=== PATIENT | female | born 1960 | race Caucasian/White ===

== ENCOUNTER 2018-01-01 09:37 | Emergency (ER) | payer SELFPAY, MEDICAID | END 2018-01-01 10:20 | disposition home or self-care (01) | LOC: M ED 09:37 | DX: B35.4 Tinea corporis (principal); F17.210 Nicotine dependence, cigarettes, uncomplicated | CPT/HCPCS: 99282 ==

== ENCOUNTER 2018-03-05 09:55 | Emergency (ER) | payer OTHER, SELFPAY | END 2018-03-05 10:54 | disposition home or self-care (01) | LOC: M ED 09:55 | DX: B35.9 Dermatophytosis, unspecified (principal); F17.200 Nicotine dependence, unspecified, uncomplicated; Z79.899 Other long term (current) drug therapy | CPT/HCPCS: 99282 ==

== ENCOUNTER → 2018-03-22 | Outpatient (REF) | payer OTHER | LOC: M SFHCPLAZ 14:11 | DX: Z76.89 Persons encountering health services in other specified circumstances (principal) ==

== ENCOUNTER 2020-02-01 18:24 | Inpatient (IN) | payer OTHER ==
[~2020-02-01] VITALS: Ht 165.1 cm; Wt 60.5 kg
[~2020-02-01 18:24] MED LIST: FLUC200T2 PO; [UNRECOGNIZED DRUG - CODE] TOP
[2020-02-01] MEDS ORDERED: MORPHINE 2 MG/ML 1ML VIAL (J2270) IV ONE (19:00)
[2020-02-01] MEDS ORDERED: NS 500 ML IV ONE (19:00)
[2020-02-01] MEDS ORDERED: ONDANSETRON 4MG/2ML VIAL IV ONE (19:00)
--- NOTE | 2020-02-01 19:43 | REPVR ---
PROCEDURE INFORMATION: Exam: CT Head Without Contrast Exam date and time: 02/01/2020 7:07 PM Age: 59 years old Clinical indication: Injury or trauma; Fall; Initial encounter; Blunt trauma (contusions or hematomas); Additional info: Fall, recent alcohol TECHNIQUE: Imaging protocol: Computed tomography of the head without contrast. Axial and coronal reformatted images were created and reviewed. Radiation optimization: All CT scans at this facility use at least one of these dose optimization techniques: automated exposure control; mA and/or kV adjustment per patient size (includes targeted exams where dose is matched to clinical indication); or iterative reconstruction. COMPARISON: No relevant prior studies available. FINDINGS: Brain: No CT evidence of acute intracranial hemorrhage or acute territorial infarction. No significant mass effect or midline shift. Basal cisterns patent. Ventricles: Normal in size and configuration. Bones/joints: No acute osseous abnormality. Chronic deformity of the nasal bones. Paranasal sinuses: Minimal ethmoid mucosal thickening. Mastoid air cells: Grossly unremarkable. Soft tissues: Grossly unremarkable. IMPRESSION: 1. No CT evidence of acute intracranial pathology. 2. Additional findings, as above. Electronically signed by: Lionel Soto On 02/01/2020 19:43:20 PM
--- NOTE | 2020-02-01 19:46 | REPVR ---
PROCEDURE INFORMATION: Exam: CT Cervical Spine Without Contrast Exam date and time: 02/01/2020 7:07 PM Age: 59 years old Clinical indication: Injury or trauma; Fall; Initial encounter; Blunt trauma; Additional info: Fall, recent alcohol TECHNIQUE: Imaging protocol: Computed tomography images of the cervical spine without contrast. Axial, coronal and sagittal reformatted images were created and reviewed. Radiation optimization: All CT scans at this facility use at least one of these dose optimization techniques: automated exposure control; mA and/or kV adjustment per patient size (includes targeted exams where dose is matched to clinical indication); or iterative reconstruction. COMPARISON: No relevant prior studies available. FINDINGS: Vertebrae: Osteopenia. Straightening of the no cervical lordosis. Mild anterolisthesis of C3 on C4, C4 on C5 and C7 on T1. Mild retrolisthesis of C5 on C6. Alignment otherwise anatomic. No CT evidence of acute fracture, dislocation or subluxation. Vertebral body heights maintained. Discs/Spinal canal/Neural foramina: Mild multilevel degenerative changes, characterized by disc space narrowing, osteophytosis and uncovertebral and facet joint hypertrophy. Mild multilevel spinal canal and neural foraminal narrowing. Soft tissues: Grossly unremarkable. IMPRESSION: 1. No CT evidence of acute cervical spine traumatic injury. 2. Additional findings, as above. Electronically signed by: Lionel Soto On 02/01/2020 19:46:04 PM
[2020-02-01 19:53] LABS: BASO # 0.1 10^3/uL (0.0-0.2); BASO % 0.5 % (0.0-1.0); EOS # 0.1 10^3/uL (0.0-0.5); EOS % 0.5 % (0.0-3.0); HEMATOCRIT 46.7 % (36.0-47.0); HEMOGLOBIN 15.5 g/dl (12.0-15.5); LYMPH # 2.3 10^3/uL (1.5-5.0); LYMPH % 20.7 % (24.0-44.0); MEAN CORPUSCULAR HGB CONC 33.2 g/dl (32.0-36.5); MEAN CORPUSCULAR VOLUME 90.3 fl (80.0-96.0); MONO # 0.6 10^3/uL (0.0-0.8); MONO % 5.6 % (0.0-5.0); NEUTROPHILS % 72.4 % (36.0-66.0); PLATELET COUNT, AUTOMATED 281 10^3/uL (150-450); RED BLOOD COUNT 5.17 10^6/uL (4.00-5.40); WHITE BLOOD COUNT 11.1 10^3/uL (4.0-10.0)
[2020-02-01 20:17] LABS: BLOOD UREA NITROGEN 8 MG/DL (7-18); CALCIUM LEVEL 8.6 MG/DL (8.8-10.2); CARBON DIOXIDE LEVEL 23 MEQ/L (21-32); CHLORIDE LEVEL 104 MEQ/L (98-107); CREATININE FOR GFR 0.55 MG/DL (0.55-1.30); ETHYL ALCOHOL (ETHANOL) 0.292 % (0.000-0.010); GLOMERULAR FILTRATION RATE > 60.0 (>45); GLUCOSE, FASTING 100 MG/DL (70-100); POTASSIUM SERUM 4.3 MEQ/L (3.5-5.1); SODIUM LEVEL 135 MEQ/L (136-145)
--- NOTE | 2020-02-01 20:45 | REPVR ---
PROCEDURE INFORMATION: Exam: XR Chest, 1 View Exam date and time: 02/01/2020 8:29 PM Age: 59 years old Clinical indication: Screening exam; Pre-operative exam; Other: Pre op; Additional info: Pre- op clearance TECHNIQUE: Imaging protocol: XR of the chest Views: 1 view. COMPARISON: No relevant prior studies available. FINDINGS: Lungs: Unremarkable. No consolidation. Pleural space: Unremarkable. No pleural effusion. No pneumothorax. Heart/Mediastinum: Unremarkable. No cardiomegaly. Bones/joints: No acute osseous abnormality. Mild degenerative changes of the spine. IMPRESSION: No acute radiographic findings. Electronically signed by: Lionel Soto On 02/01/2020 20:45:20 PM
--- NOTE | 2020-02-01 20:45 | REPVR ---
PROCEDURE INFORMATION: Exam: XR Right Femur Exam date and time: 02/01/2020 8:29 PM Age: 59 years old Clinical indication: Pain; Lower leg; Right; Additional info: Fall, deformity TECHNIQUE: Imaging protocol: XR Right femur. Views: 2 views. COMPARISON: No relevant prior studies available. FINDINGS: Bones/joints: No radiographic evidence of acute fracture or dislocation. Alignment anatomic. Joint spaces preserved. Soft tissues: Grossly unremarkable. IMPRESSION: No acute radiographic findings. Electronically signed by: Lionel Soto On 02/01/2020 20:45:14 PM
--- NOTE | 2020-02-01 20:52 | REPVR ---
PROCEDURE INFORMATION: Exam: XR Right Tibia and Fibula Exam date and time: 02/01/2020 8:29 PM Age: 59 years old Clinical indication: Pain; Lower leg; Right; Additional info: Fall, deformity TECHNIQUE: Imaging protocol: XR Right tibia and fibula. Views: 2 views. COMPARISON: No relevant prior studies available. FINDINGS: Bones/joints: Displaced, obliquely oriented fractures of the distal tibial and fibular shafts with posterior and lateral displacement of the distal fragments and slight apex lateral angulation at the fracture sites. No dislocation. Soft tissues: Soft tissue swelling. IMPRESSION: 1. Acute fractures of the distal tibia and fibula, as described above. 2. Additional findings, as above. Electronically signed by: Lionel Soto On 02/01/2020 20:52:24 PM
[2020-02-01] MEDS ORDERED: ACETAMINOPHEN TAB 650MG DOSE (2X325MG) PO PRN (21:30)
[2020-02-01] MEDS ORDERED: LORazepam 2 MG TAB PO PRN (21:30)
[2020-02-01] MEDS ORDERED: fentaNYL 100 MCG/2 ML INJECTION (J3010) IV ONE (22:00)
[2020-02-01 23:38] VITALS: BP 138/86
[2020-02-02] VITALS (9 sets, daily range): BP systolic 139–159; BP diastolic 78–102
--- NOTE | 2020-02-02 00:24 | HPEPDOC ---
General Date of Admission Feb 01, 2020 at 21:26 Date of Service: Feb 01, 2020 Attending Physician: BLAS GOMEZ MD Chief Complaint The patient is a 59-year-old female admitted with a reason for visit of Etoh, Fall, Fracture Of R Lower Extremity. Source: Patient Exam Limitations: No limitations History of Present Illness 59 yo woman with no significant past medical history who was brought to the ED with acute RLE pain after suffering a mechanical fall that she reports happened while she was walking her dog. In the ED, she was HDS and afebrile and intoxicated reported having had only 2 beers. Workup was notable for R tib/fib XR that revealed acute fractures of distal tib/fib with posterior and lateral displacement with no dislocation with soft tissue swelling, R femur XR without fractures, head and C-spine CT's without acute pathology or fractures and CXR without cardiopulmonary abnormalities. Lab findings included leukocytosis to 11.1, Hgb 15.5, platelets 281, na 135, K 4.3, BUN 23, Cr 0.55, glucose 100, alcohol level of 0.292 and she was covid-[address] Dial was consulted by the ED and recommended admission to medicine and tentative plan for surgery tomorrow after resolution of alcohol intoxication. Of note, she is a smoker, appears to have alcohol use disorder but otherwise denies any recent fevers, chills, dysuria, cough, congestion, travel, sick contacts, chest pain, palpitations, peripheral edema, fainting spells, a history of seizure activity. Home Medications No Active Prescriptions or Reported Meds Allergies Coded Allergies: No Known Allergies (Unverified , 01/01/18) Past Medical History Medical History Nicotine addiction Alcohol use disorder Surgical History None Family History Significant Family History: No pertinent family hx Social History * Smoker: current smoker Alcohol: heavy Drugs: denies Recent Travel/Sick Contacts: Denies: Recent travel, Recent sick contacts Lives at home with her . A-FIB/CHADSVASC A-FIB History Current/History of A-Fib/PAF?: No Current PO Anticoag Therapy: No Age/Risk Factor Scoring CHADSVASC: CHADSVASC Response (Comments) Value Age Risk Factor Age < 65 years old 0 Gender Risk Factor Female 1 Hx of CHF No 0 Hx of HTN No 0 Hx of Stroke/TIA/or VTE No 0 Hx of Diabetes No 0 Hx of Vascular Disease No 0 Total 1 Treatment Treatment ordered: NONE Reason Anticoagulant not given: Not indicated/[id number] Review of Systems Constitutional: Denies: Chills, Fever, Night Sweats Eyes: Denies: Pain, Vision change ENT: Denies: Head Aches, Ear Pain, Dysphagia Skin: Denies: Rash, Lesions, Breakdown Pulmonary: Denies: Dyspnea, Cough Cardiovascular: Denies: Chest Pain, Palpitations, Orthopnea, Paroxysmal Noc. Dyspnea, Lt Headedness Gastrointestinal: Denies: Nausea, Vomiting, Abdominal Pain, Diarrhea Genitourinary: Denies: Dysuria, Frequency, Incontinence, Retention Hematologic: Denies: Bruising, Bleeding Excessively Endocrine: Denies: Polydipsia, Polyphagia, Polyuria, Heat Intolerance, Cold Intolerance, Other Endocrine Sx Musculoskeletal: Reports: Leg Pain (R leg pain since she fell this evening); Denies: Neck Pain, Back Pain, Shoulder Pain, Arm Pain Neurological: Denies: Weakness, Numbness, Change in speech, Confusion, Seizures Psych: Reports: Mood Normal; Denies: Depression, Memory Issues Physical Examination General Exam: Positive: Alert, No Acute Distress, Other (anxious, sometimes refuses care from nursing) Eye Exam: Positive: PERRLA, Conjunctiva & lids normal, EOMI; Negative: Sclera icteric ENT Exam: Positive: Atraumatic, Mucous membr. moist/pink, Pharynx Normal Neck Exam: Positive: Supple; Negative: JVD, thyromegaly Chest Exam: Positive: Clear to auscultation, Normal air movement Heart Exam: Positive: Rate Normal, Regular Rhythm, Normal S1, Normal S2; Negative: Murmurs, Rubs Telemetry: Positive: No significant arrhythmia Abdomen Exam: Positive: Normal bowel sounds, Soft; Negative: Tenderness, Hepatospenomegaly Extremity Exam: Positive: Swelling (RLE midl swelling, with leg brace on); Negative: Edema, Normal pulses Skin Exam: Positive: Nl turgor and temperature; Negative: Breakdown, Lesion Neuro Exam: Positive: Normal Speech, Strength at 5/5 X4 ext, Sensation Intact, Cranial Nerves 3-12 NL Psych Exam: Positive: Mental status NL, Mood NL, Anxiety, Oriented x 3 Vital Signs Vital Signs Date Time Temp Pulse Resp B/P (MAP) Pulse Ox O2 Delivery O2 Flow Rate FiO2 9/19/20 21:24 83 18 97 Room Air 02/01/20 20:39 161/84 (109) 02/01/20 19:57 98.4 Laboratory Data Labs 24H Laboratory Tests 2 02/01/20 19:36: Immature Granulocyte % (Auto) 0.3, Neutrophils (%) (Auto) 72.4H, Lymphocytes (%) (Auto) 20.7L, Monocytes (%) (Auto) 5.6H, Eosinophils (%) (Auto) 0.5, Basophils (%) (Auto) 0.5, Neutrophils # (Auto) 8.0, Lymphocytes # (Auto) 2.3, Monocytes # (Auto) 0.6, Eosinophils # (Auto) 0.1, Basophils # (Auto) 0.1, Nucleated Red Blood Cells % (auto) 0.0, Anion Gap 8, Glomerular Filtration Rate > 60.0, Calcium Level 8.6L, Ethyl Alcohol Level 0.292H 02/01/20 21:47: Coronavirus (COVID-19)(PCR) NEGATIVE CBC/BMP Laboratory Tests 02/01/20 19:36 Assessment/Plan 59 yo W who sustained R tib/fib fracture in the setting of alcohol intoxication. R tib/fib fracture: -Dr. Dial consulted, likely surgery tomorrow -EKG NSR, telemetry with NSR in the ED, CXR wnl, CT head and C-spine without acute pathology or fractures, smoker with no medications at baseline, breathing comfortably on room air, covid-19 negative, INR wnl, no other significant medical history, cleared for surgery at this time. -TEDs for DVT ppx -Bed rest for now until evaluation by surgery -PT/OT per surgery recommendations -AM CBC, BMP -NPO at midnight -morphine [id number] for severe pain, tylenol PRn for mild pain Alcohol use disorder: -CIWA protocol with symptom triggered ativan PRN -thiamine, folate, multivitamin Nicotine addiction: -counselled on deleterious effects of smoking. Patient reports that she has been fine but will consider quitting in the future Leukocytosis: likely reactive with clear CXR and no clinical history suggestive of ongoing infection -will monitor for now DVT ppx: TEDs and sequentials for now, with pending surgery Dispo: medsurg, inpatient Plan / VTE VTE Prophylaxis Ordered?: Yes KUPAKUWANA-GOLDEN,BLAS V. MD Feb 02, 2020 00:24
[2020-02-02] MEDS: MORPHINE 2 MG/ML 1ML VIAL (J2270) IV SCH ×2 (00:37→08:22)
[2020-02-02 07:02] LABS: HEMATOCRIT 42.4 % (36.0-47.0); HEMOGLOBIN 14.1 g/dl (12.0-15.5); MEAN CORPUSCULAR HEMOGLOBIN 29.8 pg (27.0-33.0); MEAN CORPUSCULAR HGB CONC 33.3 g/dl (32.0-36.5); MEAN CORPUSCULAR VOLUME 89.6 fl (80.0-96.0); PLATELET COUNT, AUTOMATED 253 10^3/uL (150-450); RED BLOOD COUNT 4.73 10^6/uL (4.00-5.40); WHITE BLOOD COUNT 9.4 10^3/uL (4.0-10.0)
[2020-02-02 07:35] LABS: BLOOD UREA NITROGEN 6 MG/DL (7-18); CARBON DIOXIDE LEVEL 25 MEQ/L (21-32); CHLORIDE LEVEL 106 MEQ/L (98-107); CREATININE FOR GFR 0.47 MG/DL (0.55-1.30); GLOMERULAR FILTRATION RATE > 60.0 (>45); GLUCOSE, FASTING 90 MG/DL (70-100); POTASSIUM SERUM 4.1 MEQ/L (3.5-5.1); SODIUM LEVEL 138 MEQ/L (136-145)
[2020-02-02 07:36] LABS: ALBUMIN 3.4 GM/DL (3.2-5.2); ALT/SGPT 30 U/L (12-78); BILIRUBIN,TOTAL 0.5 MG/DL (0.2-1.0); CALCIUM LEVEL 8.7 MG/DL (8.8-10.2); MAGNESIUM LEVEL 1.9 MG/DL (1.8-2.4); TOTAL PROTEIN 7.3 GM/DL (6.4-8.2)
[2020-02-02] MEDS: MULTIVITAMINS/MINERALS THERAP 1 TAB PO SCH (09:00)
[2020-02-02] MEDS: THIAMINE 100 MG TAB PO SCH ×2 (09:00→21:07)
[2020-02-02] MEDS: FOLIC ACID 1 MG TAB PO SCH (09:00)
[2020-02-02] MEDS ORDERED: MORPHINE 2 MG/ML 1ML VIAL (J2270) IV PRN ×2 (10:00→13:00)
[2020-02-02] MEDS ORDERED: ceFAZolin 2 GM/D5W 50 ML IV BAG (J0690 PER 500MG) As Ordered ONE (10:12)
[2020-02-02] MEDS ORDERED: NICOTINE 21MG/24HR 1 EA TRANSDERMAL TD ONE (10:15)
[2020-02-02] MEDS ORDERED: propofoL 200 MG/20 ML VIAL As Ordered ONE (10:42)
[2020-02-02] MEDS ORDERED: fentaNYL 100 MCG/2 ML INJECTION (J3010) As Ordered ONE (10:42)
[2020-02-02] MEDS ORDERED: MIDAZOLAM INJ 2MG/2ML VIAL (J2250 PER 1MG) As Ordered ONE (10:42)
[2020-02-02] MEDS ORDERED: LIDOCAINE 2% 100MG/5ML SDV (FOR ANES.) As Ordered ONE (10:42)
[2020-02-02] MEDS ORDERED: dexameTHASONE 4 MG/ML 1ML VIAL (J1100 PER 1MG) As Ordered ONE (10:43)
[2020-02-02] MEDS ORDERED: METOCLOPRAMIDE INJ 10MG/2ML VIAL (J2765 PER 1) As Ordered ONE (10:43)
[2020-02-02] MEDS ORDERED: ONDANSETRON 4MG/2ML VIAL As Ordered ONE (10:43)
[2020-02-02] MEDS ORDERED: PHENYLEPHRINE 10MG/ML 1ML VIAL (J2370 PER 1) As Ordered ONE (10:50)
[2020-02-02] MEDS ORDERED: ePHEDrine SULFATE 25 MG/5 ML(5MG/ML) SYRINGE As Ordered ONE (11:18)
[2020-02-02] MEDS ORDERED: ACETAMINOPHEN 1000MG 100ML IV BTL (OFIRMEV) (J0131 PER 10MG) As Ordered ONE (12:15)
[2020-02-02] MEDS ORDERED: METOCLOPRAMIDE INJ 10MG/2ML VIAL (J2765 PER 1) IV PRN (13:00)
[2020-02-02] MEDS ORDERED: ACETAMINOPHEN TAB 650MG DOSE (2X325MG) PO PRN (13:00)
[2020-02-02] MEDS ORDERED: LR 1,000 ML IV SCH ×2 (13:00)
[2020-02-02] MEDS ORDERED: ONDANSETRON 4MG/2ML VIAL IV PRN ×2 (13:00)
[2020-02-02] MEDS ORDERED: MORPHINE 4 MG/ML 1ML VIAL/SYRINGE (J2270) IV PRN (13:00)
[2020-02-02] MEDS ORDERED: fentaNYL 100 MCG/2 ML INJECTION (J3010) IV PRN (13:00)
[2020-02-02] MEDS ORDERED: PERCOCET 5MG/325MG TAB PO PRN (13:00)
[2020-02-02] MEDS ORDERED: PERCOCET 5MG/325MG TAB As Ordered ONE (13:11)
[2020-02-02] MEDS: PERCOCET 5MG/325MG TAB PO PRN ×2 (18:05→23:08)
--- NOTE | 2020-02-02 18:24 | IPNPDOC ---
Subjective Date Seen The patient was seen on 02/02/20. Subjective Chief Complaint/HPI Patient is a 59 year old female with history of alcohol and nicotine use disorder here with right tibia/fibula fracture. She was seen in the morning prior to going down to surgery. She was still having pain in her leg, but otherwise denies fever/chills, chest pain, dyspnea, abdominal pain, dysuria, or diarrhea. Constitutional: Denies: Chills, Fever Pulmonary: Denies: Dyspnea Cardiovascular: Denies: Chest Pain Gastrointestinal: Denies: Abdominal Pain, Diarrhea Genitourinary: Denies: Dysuria Objective Physical Examination General Exam: Positive: Alert, No Acute Distress, Other (anxious, sometimes refuses care from nursing) Eye Exam: Positive: PERRLA, Conjunctiva & lids normal, EOMI; Negative: Sclera icteric ENT Exam: Positive: Atraumatic, Mucous membr. moist/pink, Pharynx Normal Neck Exam: Positive: Supple; Negative: JVD, thyromegaly Chest Exam: Positive: Clear to auscultation, Normal air movement Heart Exam: Positive: Rate Normal, Regular Rhythm, Normal S1, Normal S2; Negative: Murmurs, Rubs Telemetry: Positive: No significant arrhythmia Abdomen Exam: Positive: Normal bowel sounds, Soft; Negative: Tenderness, Hepatospenomegaly Extremity Exam: Positive: Swelling (RLE midl swelling, with leg brace on); Negative: Edema, Normal pulses Skin Exam: Positive: Nl turgor and temperature; Negative: Breakdown, Lesion Neuro Exam: Positive: Normal Speech, Strength at 5/5 X4 ext, Sensation Intact, Cranial Nerves 3-12 NL Psych Exam: Positive: Mental status NL, Mood NL, Anxiety, Oriented x 3 Assessment /Plan Assessment Patient is a 59 year old female here with right tibia/fibular fracture. Dr. Dial has been consulted. Patient to have surgery today. Plan/VTE VTE Prophylaxis Ordered?: Yes Plan 1. Right tibia/fibular fracture - Orthopedics consulted, recommendations appreciated - Went to surgery today 2. Alcohol use disorder - [facility] protocol - Thiamine, folate, multivitamin 3. Nicotine addition - Will need to be re-addressed at a later date 4. Leukocytosis - May be secondary to fracture. Decreased with today's AM labs, but will increase after surgery. Continue to monitor 5. DVT ppx - TEDs and sequentials pending surgery VS, I&O, 24H, Fishbone Vital Signs/I&O Vital Signs Date Time Temp Pulse Resp B/P (MAP) Pulse Ox O2 Delivery O2 Flow Rate FiO2 02/02/20 18:05 18 02/02/20 13:30 82 141/97 02/02/20 13:12 98 Nasal Cannula 2.0 02/02/20 13:04 97.2 I&O- Last 24 Hours up to 6 AM 02/02/20 05:59 Intake Total 0 ml Output Total 0 ml Balance 0 ml Laboratory Data 24H LABS Laboratory Tests 2 02/01/20 19:36: Immature Granulocyte % (Auto) 0.3, Neutrophils (%) (Auto) 72.4H, Lymphocytes (%) (Auto) 20.7L, Monocytes (%) (Auto) 5.6H, Eosinophils (%) (Auto) 0.5, Basophils (%) (Auto) 0.5, Neutrophils # (Auto) 8.0, Lymphocytes # (Auto) 2.3, Monocytes # (Auto) 0.6, Eosinophils # (Auto) 0.1, Basophils # (Auto) 0.1, Nucleated Red Blood Cells % (auto) 0.0, Anion Gap 8, Glomerular Filtration Rate > 60.0, Calcium Level 8.6L, Ethyl Alcohol Level 0.292H 02/01/20 21:47: Coronavirus (COVID-19)(PCR) NEGATIVE 02/02/20 06:21: Nucleated Red Blood Cells % (auto) 0.0, Anion Gap 7L, Glomerular Filtration Rate > 60.0, Calcium Level 8.7L, Magnesium Level 1.9, Total Bilirubin 0.5, Aspartate Amino Transf (AST/SGOT) 30, Alanine Aminotransferase (ALT/SGPT) 30, Alkaline Phosphatase 103, Total Protein 7.3, Albumin 3.4, Albumin/Globulin Ratio 0.9L 02/02/20 08:29: Ethyl Alcohol Level < 0.003 CBC/BMP Laboratory Tests 02/01/20 19:36 02/02/20 06:21 INNA HENNESSY DO Feb 02, 2020 18:24
[2020-02-02] MEDS: ceFAZolin SOD 2 GM in IV 1 EA IV SCH (22:33)
[2020-02-03 02:00] VITALS: BP 137/79
[2020-02-03 06:00] VITALS: BP 135/79
[2020-02-03] MEDS ORDERED: ceFAZolin SOD 2 GM in IV 1 EA IV ONE (06:00)
[2020-02-03] MEDS: PERCOCET 5MG/325MG TAB PO PRN ×2 (06:01→10:42)
[2020-02-03] MEDS: ceFAZolin SOD 2 GM in IV 1 EA IV SCH (06:01)
[2020-02-03 06:04] LABS: BASO % 0.2 % (0.0-1.0); EOS % 0.1 % (0.0-3.0); HEMATOCRIT 40.2 % (36.0-47.0); HEMOGLOBIN 13.7 g/dl (12.0-15.5); LYMPH # 1.7 10^3/uL (1.5-5.0); LYMPH % 14.8 % (24.0-44.0); MEAN CORPUSCULAR HEMOGLOBIN 30.9 pg (27.0-33.0); MEAN CORPUSCULAR HGB CONC 34.1 g/dl (32.0-36.5); MEAN CORPUSCULAR VOLUME 90.5 fl (80.0-96.0); MONO # 1.3 10^3/uL (0.0-0.8); NEUTROPHILS # 8.1 10^3/uL (1.5-8.5); NEUTROPHILS % 72.5 % (36.0-66.0); PLATELET COUNT, AUTOMATED 242 10^3/uL (150-450); RED BLOOD COUNT 4.44 10^6/uL (4.00-5.40); WHITE BLOOD COUNT 11.2 10^3/uL (4.0-10.0)
[2020-02-03 06:14] LABS: BLOOD UREA NITROGEN 6 MG/DL (7-18); CALCIUM LEVEL 8.7 MG/DL (8.8-10.2); CARBON DIOXIDE LEVEL 29 MEQ/L (21-32); CHLORIDE LEVEL 104 MEQ/L (98-107); CREATININE FOR GFR 0.48 MG/DL (0.55-1.30); GLOMERULAR FILTRATION RATE > 60.0 (>45); GLUCOSE, FASTING 97 MG/DL (70-100); POTASSIUM SERUM 4.1 MEQ/L (3.5-5.1); SODIUM LEVEL 139 MEQ/L (136-145)
[2020-02-03] MEDS ORDERED: PERC5TAB12 PO (06:22)
[2020-02-03] MEDS ORDERED: ECOT81TA5 PO (06:22)
[2020-02-03 06:48] VITALS: BP 135/79
[2020-02-03] MEDS: MULTIVITAMINS/MINERALS THERAP 1 TAB PO SCH (07:52)
[2020-02-03] MEDS: FOLIC ACID 1 MG TAB PO SCH (07:52)
[2020-02-03] MEDS: THIAMINE 100 MG TAB PO SCH (07:52)
[2020-02-03] MEDS ORDERED: ASPIRIN 81 MG ENTERIC TAB PO SCH (09:00)
[2020-02-03] MEDS ORDERED: MIRALAX *UNIT DOSE* 17GM PACKET PO SCH (09:00)
--- NOTE | 2020-02-03 21:02 | DS.PDOC ---
Discharge Summary General Date of Admission Feb 01, 2020 at 21:26 Date of Discharge Feb 03, 2020 Attending Physician: INNA HENNESSY DO Specialist/Consultants [facility] Orthopedic surgery, Dr. Dial Discharge Summary PROCEDURES PERFORMED DURING STAY: Right ORIF for tubular fibular fracture ADMITTING DIAGNOSES: 1. Right tubular fibular fracture. 2. Alcohol disorder. 3. Nicotine addiction. 4. Leukocytosis DISCHARGE DIAGNOSES: 1. Right tubular fibular fracture. 2. Alcohol disorder. 3. Nicotine addiction. 4. Leukocytosis COMPLICATIONS/CHIEF COMPLAINT: Etoh, Fall, Fracture Of R Lower Extremity. HISTORY OF PRESENT ILLNESS: It is a 59-year-old female, history of alcohol abuse who comes [facility], [place] after having a mechanical fall while intoxic ated. She reported only having 2 beers, but she is intoxicated while walking her dog. She had a fall and then went to the ED workup was notable for a right tubular fibular fracture. Orthopedic surgery, Dr. Dial, was consulted. HOSPITAL COURSE: The following day, she was feeling well. She denied any fever, chills, chest pain, shortness of breath, abdominal pain or dysuria. She was ready for surgery. She had the repair on 02/02/2020. The following day she is feeling well other than the pain in her leg, status post surgery. Denied any fever or chills. Slight tenderness, dizziness, sore throat, chest pain, shortness of breath, cough, abdominal pain, diarrhea or dysuria. She worked with physical therapy and was cleared to be discharged. DISCHARGE MEDICATIONS: Please see below. ALLERGIES: Please see below. PHYSICAL EXAMINATION ON DISCHARGE: VITAL SIGNS: Please see below. PHYSICAL EXAM: GENERAL: Comfortable, in no apparent distress. HEENT: Head normocephalic/atraumatic, EOMI, sclera clear. NECK: Supple, no JVD. RESPIRATORY: Lungs clear to auscultation bilaterally, no rales, wheeze or rhonchi. CARDIOVASCULAR: Regular rate and rhythm. ABDOMEN: Soft, nontender, no guarding or rebound tenderness. Normal bowel sounds. MUSCLE SKELETAL: Right leg in cast NEUROLOGICAL: CN 312 grossly intact, no focal deficits noted. PSYCHOLOGICAL: Normal mood and affect LABORATORY DATA: Please see below. IMAGING: X-ray of the right tibia and fibula: Displaced, obliquely oriented fractures of the distal tibial and fibular shafts with posterior and lateral displacement of the distal fragments and slight apex lateral angulation at the fracture sites. No dislocation. PROGNOSIS: Stable ACTIVITY: Walk with walker, toe-touch weightbearing. DIET: As tolerated DISCHARGE PLAN:. Home DISPOSITION: 01 Home, Self-Care. DISCHARGE INSTRUCTIONS: 1. Follow-up with Dr. Dial in 2 weeks. 2. Follow-up with PCP in one week. DISCHARGE CONDITION: Stable. Total time spent on discharge planning, discharge summary med reconciliation 35 minutes Vital Signs/I&Os Vital Signs Date Time Temp Pulse Resp B/P (MAP) Pulse Ox O2 Delivery O2 Flow Rate FiO2 02/03/20 11:12 16 02/03/20 06:48 77 135/79 02/03/20 06:00 98.7 97 Room Air 02/02/20 22:00 2.0 I&O- Last 24 Hours up to 6 AM 02/03/20 06:00 Intake Total 3240 ml Output Total 560 ml Balance 2680 ml Laboratory Data Labs 24H Laboratory Tests 2 02/03/20 05:27: Immature Granulocyte % (Auto) 0.4, Neutrophils (%) (Auto) 72.5H, Lymphocytes (%) (Auto) 14.8L, Monocytes (%) (Auto) 12.0H, Eosinophils (%) (Auto) 0.1, Basophils (%) (Auto) 0.2, Neutrophils # (Auto) 8.1, Lymphocytes # (Auto) 1.7, Monocytes # (Auto) 1.3H, Eosinophils # (Auto) 0.0, Basophils # (Auto) 0.0, Nucleated Red Blood Cells % (auto) 0.0, Anion Gap 6L, Glomerular Filtration Rate > 60.0, Calcium Level 8.7L CBC/BMP Laboratory Tests 02/03/20 05:27 Discharge Medications Scheduled Aspirin (Ecotrin) 81 Mg Tablet.dr 81 MG PO BID for pain Scheduled PRN Oxycodone HCl/Acetaminophen (Percocet 5-325 mg Tablet) 1 Each Tablet, 1-2 TAB PO Q4H PRN for PAIN Allergies Coded Allergies: No Known Allergies (Unverified , 01/01/18) INNA HENNESSY DO Feb 03, 2020 21:02
--- NOTE | 2020-02-14 11:44 | REP ---
RIGHT TIBIA AND FIBULA: 12-VIEWS HISTORY: Intraoperative imaging. Open reduction internal fixation. 4 minutes and 4 seconds of fluoroscopy time is reported. FINDINGS: A sequence of 12 [id number] fluoroscopically obtained spot radiographs of the right tibia and fibula document intramedullary analy positioned in the tibia and operative fixation. MTDD
--- NOTE | 2020-02-14 11:58 | RO ---
DATE OF OPERATION: 02/02/2020 PREOPERATIVE DIAGNOSIS: Right distal tibia and fibula fracture. POSTOPERATIVE DIAGNOSIS: Right distal tibia and fibula fracture. PLANNED PROCEDURE: Open reduction and internal fixation/intramedullary nail at right tibia and fibula. PROCEDURE PERFORMED: Open reduction and internal fixation/intramedullary nail at right tibia and fibula with cannulated screw fixation. ANESTHESIOLOGIST: Dr. Thomas. TYPE OF ANESTHESIA: Spinal anesthetic. HISTORY OF PRESENT ILLNESS: This 59-year-old female was intoxicated and had a fall while walking her dog yesterday. She presented with oblique/spiral distal tibia and fibula fracture. We talked about pros, cons, risks, benefits of non- operative versus surgical intervention. She wished to go ahead. We marked the right lower extremity. We reiterated the risks and proceeded to surgery. OPERATIVE REPORT: The patient was brought to the operating theater. She was placed supine on the operating room table. Spinal anesthetic was induced. Two grams of IV Ancef were administered prior to the start of the case. The limb was prepped and draped in the usual sterile fashion. A bump was placed under the right hip. Tourniquet was used on the right thigh, appropriately padded. A bone foam positioner was used. The limb was prepped and draped in the usual fashion with chlorhexidine-based prep solution allowing over 3 minutes for the prep solution to dry prior to draping. Preoperative timeout was performed confirming the patient, site, and surgery. I began by elevating the limb and inflating the tourniquet to 250 mmHg. I made a small lateral incision centered over the distal aspect of the quadriceps tendon. I carried the dissection down through skin and subcutaneous tissue, splitting the quadriceps tendon at its length. I used a suprapatellar Synthes nailing set. I inserted the clear passage of cannula down to the medial aspect of the lateral tibial spine, as well as on the anterior tibial crest on both AP and lateral radiographs. I inserted the guidewire. I removed the inner sleeve. I used the reamer over top of this to an appropriate depth. I inserted the ball-tipped guide-wire down to the fracture site. I used two percutaneous fracture reduction forceps, as well as longitudinal traction with slight internal rotation of the fracture site to obtain a proper reduction. I passed the guidewire down to display center-center on AP and lateral radiographs. This is measured to be 340 mm. As such, I selected a 330-mm long nail. The isthmus was quite tight. I reamed up to a size 10.5 mm and inserted a 9-mm in diameter nail, 330-mm long Synthes tibial nail. I inserted this down distally. I used percutaneous technique and perfect paiute-shoshone technique to insert two xsncby-kp-eqsnazy screws down distally. I used the fibula to magisterial district judge the length and I was appropriately out to length. Fracture appeared well reduced. I then turned my attention proximally. I inserted two screws in the locking position; again, these were fully threaded 4.0-mm cortical screws. I ensured that these were appropriate length and depth. I used percutaneous technique. I took final radiographs. There was a longitudinal split into the joint to the posterior malleolus. As such, I used a cannulated 4.0-mm partially-threaded screw. I used again percutaneous technique to insert an wvyvrxlr-qx-rzkcghcwp screw just superior to the joint line to capture the posterior malleolus fragment. I tightened this down to compress the joint surface and the joint appeared anatomic at this point. The guidewire was then removed and final radiographs taken. The tourniquet was taken down. The wounds were thoroughly irrigated. The split in the quadriceps tendon was closed with #1 Vicryl sutures. Subcutaneous tissues were closed with 2-0 Vicryl sutures and the skin with harpal. The skin was cleaned, dry dressing, followed by application of Adaptic, 4x8 gauze, ABD dressing, and overwrapped with sterile 6-inch Mirza bandage along the length including the proximal incision. The compartments were soft at the end. The foot was warm and well perfused. The patient was transferred off of the operating room table and taken to the postanesthesia care unit in stable condition. All sponge, needle, and instrument counts were correct. No complications. Estimated blood loss was 10 cc. PLAN: Plan is for the patient to be toe touch weightbearing due to the anterior articular split. They will follow up in the office in two weeks time to discontinue the harpal, as well as check the wound. The patient will be admitted overnight for compartment checks to be sure no compartment syndrome develops. They will see PT and OT while admitted in the hospital to ensure safety until discharge and mobilization at home. I communicated with the patient's , Padilla, after the surgery. KM
== END 2020-02-03 13:30 | disposition home or self-care (01) | DRG 313 ==
LOC: M ED 18:24 → M ED INP 21:26 → ENRESERV 21:56 → M MSPAV 23:35 → M MS5PR 02-02 11:27
PROVIDERS: ADMIT Internal Medicine; ATTEND Internal Medicine
PROC: 0QSG06Z Reposition Right Tibia with Intramedullary Internal Fixation Device, Open Approach (ICD-10-PCS; 2020-02-02)
PROC: 0QSJ04Z Reposition Right Fibula with Internal Fixation Device, Open Approach (ICD-10-PCS; principal; 2020-02-02 08:32)
DX: S82.232A Displaced oblique fracture of shaft of left tibia, initial encounter for closed fracture (principal); F10.129 Alcohol abuse with intoxication, unspecified; Y93.K1 Activity, walking an animal; W18.09XA Striking against other object with subsequent fall, initial encounter; Y92.89 Other specified places as the place of occurrence of the external cause; F17.200 Nicotine dependence, unspecified, uncomplicated; S82.432A Displaced oblique fracture of shaft of left fibula, initial encounter for closed fracture; D72.829 Elevated white blood cell count, unspecified

== ENCOUNTER → 2020-05-22 | Outpatient (CLI) | payer OTHER ==
[~2020-05-22] MED LIST changes: +ECOT81TA5 PO; +PERC5TAB12 PO
--- NOTE | 2020-05-22 08:53 | REP ---
INDICATION: PT STATED SHE FELL. COMPARISON: 02/01/2020 TECHNIQUE: AP and lateral views of the right tibia/fibula FINDINGS: Patient is status post satisfactory open reduction and fixation with intramedullary analy through the tibial shaft. Nondisplaced fracture of the distal fibula noted. Underlying age-related osteopenia and degenerative changes. IMPRESSION: Status post satisfactory open reduction and fixation. <Electronically signed by Deangelo Polo > 05/22/20 0810
== END ==
LOC: M SOG 05-21 10:15
PROVIDERS: ATTEND Orthopaedic Surgery Sports Medicine
DX: S82.454D Nondisplaced comminuted fracture of shaft of right fibula, subsequent encounter for closed fracture with routine healing (principal); M85.861 Other specified disorders of bone density and structure, right lower leg; X58.XXXD Exposure to other specified factors, subsequent encounter; Y92.9 Unspecified place or not applicable

== ENCOUNTER → 2020-08-10 | Outpatient (CLI) | payer OTHER ==
--- NOTE | 2020-08-10 09:34 | REP ---
INDICATION: F/U FX. COMPARISON: 05/22/2020 TECHNIQUE: AP and lateral views of the right tibia/fibula. FINDINGS: Patient is noted to be status post intramedullary analy placement through the tibial shaft for distal diaphyseal fracture. Healing callus formation and periosteal reaction is identified. Healing fracture through the distal fibula also noted. IMPRESSION: Healing fractures. <Electronically signed by Deangelo Polo > 08/10/20 0931
== END ==
LOC: M SOG 08:31
PROVIDERS: ATTEND Orthopaedic Surgery Sports Medicine
DX: S82.201K Unspecified fracture of shaft of right tibia, subsequent encounter for closed fracture with nonunion (principal)

== ENCOUNTER → 2021-03-04 | Outpatient (CLI) | payer OTHER ==
[~2021-03-04] MED LIST changes: +[UNRECOGNIZED DRUG - CODE] TOP; -[UNRECOGNIZED DRUG - CODE] TOP
--- NOTE | 2021-03-04 10:10 | REP ---
INDICATION: TIBIA FX. COMPARISON: 08/10/2020 TECHNIQUE: AP, lateral views of the right tibia/fibula. FINDINGS: Patient is status post open reduction and fixation with satisfactory placement of the intramedullary analy through the tibial shaft. Healing fracture of the distal tibial diaphysis noted along with healing fracture of the distal fibular metaphysis. IMPRESSION: Healing fractures. <Electronically signed by Deangelo Polo > 03/04/21 7125
== END ==
LOC: M SOG 08:55
PROVIDERS: ATTEND Orthopaedic Surgery Sports Medicine
DX: S82.231 Displaced oblique fracture of shaft of right tibia (principal)

== ENCOUNTER 2021-03-28 10:09 | Emergency (ER) | payer OTHER ==
[~2021-03-28] VITALS: Ht 160 cm; Wt 56.3 kg
[2021-03-28] MEDS ORDERED: DIFL200T PO (10:16)
--- OUTSIDE RECORDS SUMMARY | 2021-03-28 10:27 | CCD | Continuity of Care Document ---
Author Author Shanta OLIVEIRA MD Organization Unknown Address [address] [place] [address] , [facility] [address] [place] [address] Phone [phone] Care Team Providers Care Automotive Detailer Name Role Phone AUTM Unavailable Problems Description No Information Available Social History Type Date Description Comments Sex Unknown ETOH Use Occasionally consumes alcohol Tobacco Use Start: Unknown Patient is a current smoker, smo kes every day Recreational Drug Use Denies Drug Use Allergies and adverse reactions Description No Known Drug Allergies Medications Active Medications SIG Qnty Indications Ordering Provide r Date Aspirin [address] take 1 tab by mouth daily Unknown Immunizations Description No Information Available Vital Signs Date Vital Result Comment 03/04/2021 8:29am Body Temperature 97.0 F 08/10/2020 8:48am BP Systolic 168 mmHg Heart Rate 84 /min O2 % BldC Oximetry 97 % Body Temperature 97.9 F Height 63.5 inches 5'3.50" Weight 124.00 lb BMI (Body Mass Index) 21.6 kg/m2 [place] Body Weight 115 lb Weight 56.246 kg BSA (Body Surface Area) 1.59 m2 Results Description No Information Available Procedures Date Code Description Status 03/04/2021 81913 Office/Outpatient Established Mo d MDM 30-39 Min Completed Medical Devices Description No Information Available Encounters Type Date Location Provider Dx Diagnosis Office Visit 03/04/2021 8:30a [facility] Antonio Oliveira MD S82.231G Displ oblique fx shaft of r tibia, 7thG Assessments Date Code Description Provider 03/04/2021 S82.231G Displaced oblique fr acture of shaft of right tibia, subsequent encounter for closed fracture with delayed healing Antonio Oliveira MD Plan of Treatment 03/04/2021 - Antonio Oliveira MD* S82.231G Displaced oblique fracture of shaft of right tibia, subsequent encounter for closed fracture with delayed healing* New Xrays:* XR Tibia And Fibula 2 Views Right, Ordered: 03/04/21 Functional Status Description No Information Available Mental Status Description No Information Available Referrals Description No Information Available
--- OUTSIDE RECORDS SUMMARY | 2021-03-28 10:27 | CCD ---
Author Author [facility] Organization [facility] Address Unknown Phone Unavailable Care Team Providers Care Posting Machine Operator Name Role Phone Yarely Dial MD Unavailable Unavailable Mollison, Yarely Alvarez MD Unavailable Unavailable Mollison, Yarely Alvarez MD Unavailable Unavailable Mollison, Yarely Alvarez MD Unavailable Unavailable Mollison, Yarely Alvarez MD Unavailable Unavailable Mollison, Yarely Alvarez MD Unavailable Unavailable Mollison, Yarely Alvarez MD Unavailable Unavailable Mollison, Yarely Alvarez MD Unavailable Unavailable Mollison, Yarely Alvarez MD Unavailable Unavailable Mollison, Yarely Alvarez MD Unavailable Unavailable Mollison, Yarely Alvarez MD Unavailable Unavailable Mollison, Yarely Alvarez MD Unavailable Unavailable Mollison, Yarely Alvarez MD Unavailable Unavailable Mollison, Yarely Alvarez MD Unavailable Unavailable Mollison, Yarely Alvarez MD Unavailable Unavailable Mollison, Yarely Alvarez MD Unavailable Unavailable Mollison, Yarely Alvarez MD Unavailable Unavailable Mollison, Yarely Alvarez MD Unavailable Unavailable Mollison, Yarely Alvarez MD Unavailable Unavailable Mollison, Yarely Alvarez MD Unavailable Unavailable Mollison, Yarely Alvarez MD Unavailable Unavailable Mollison, Yarely Alvarez MD Unavailable Unavailable Mollison, Yarely Alvarez MD Unavailable Unavailable Mollison, Yarely Alvarez MD Unavailable Unavailable Mollison, Yarely Alvarez MD Unavailable Unavailable Mollison, Yarely Alvarez MD Unavailable Unavailable Mollison, Yarely Alvarez MD Unavailable Unavailable Mollison, Yarely Alvarez MD Unavailable Unavailable Mollison, Yarley Alvarez MD Unavailable Unavailable Mollison, Yarely Alvarez MD Unavailable Unavailable Re-disclosure Warning The records that you are about to access may contain information from federally-assisted alcohol or drug abuse programs. If such information is present, then the following federally mandated warning applies: This information has been disclosed to you from records protected by federal confidentiality rules (42 CFR part 2). The federal rules prohibit you from making any further disclosure of this information unless further disclosure is expressly permitted by the written consent of the person to whom it pertains or as otherwise permitted by 42 CFR part 2. A general authorization for the release of medical or other information is NOT sufficient for this purpose. The Federal rules restrict any use of the information to criminally investigate or prosecute any alcohol or drug abuse patient.The records that you are about to access may contain highly sensitive health information, the redisclosure of which is protected by Article 27-F of the [facility] Public Health law. If you continue you may have access to information: Regarding HIV / AIDS; Provided by facilities licensed or operated by the [facility] Office of Mental Health; or Provided by the [facility] Office for People With Developmental Disabilities. If such information is present, then the following [facility] mandated warning applies: This information has been disclosed to you from confidential records which are protected by state law. State law prohibits you from making any further disclosure of this information without the specific written consent of the person to whom it pertains, or as otherwise permitted by law. Any unauthorized further disclosure in violation of state law may result in a fine or senior living sentence or both. A general authorization for the release of medical or other information is NOT sufficient authorization for further disc losure. Encounters Encounter Providers Location Date Indications Data Source(s ) Outpatient Attender: Antonio Zhang/Merle/Ayad/Re indl 03/04/2021 08:30:00 AM EDT [facility] Outpatient Attender: Antonio Zhang/Merle/Ayad/Re indl 08/10/2020 09:00:00 AM EDT [facility] ([facility]) Outpatient Attender: Antonio Noguera/Re indl 06/29/2020 08:30:00 AM EST [facility] ([facility] Outpatient Attender: Antonio Church/Ayad/Re indl 06/01/2020 08:15:00 AM EST [facility] ([facility] Outpatient Attender: Antonio Church/Ayad/Re indl 05/22/2020 07:30:00 AM EST [facility] ([facility] Outpatient Attender: Antonio Dial MD 05/15/2020 01:55:00 PM [facility] Office Visit Attender: Antonio Zhang/Merle/Ayad/Re indl 04/28/2020 09:10:00 AM EST [facility] ([facility] ) Outpatient Attender: Antonio Dial MD 05/2019 08:26:00 AM EST - 05/14/2020 01:55:00 PM [facility] Patient discharged. Office Visit Attender: Antonio Noguera/Re indl 03/16/2020 09:10:00 AM EST [facility] ([facility], ) Outpatient Attender: Antonio Dial MD 05/2019 03:16:00 PM EST - 04/08/2020 08:25:00 AM [facility] Patient discharged. Outpatient Attender: Antonio Dial MD 01/2020 08:50:00 AM EDT - 03/12/2020 03:16:00 PM [facility] Patient discharged. Outpatient Attender: Antonio Zhang/Jovany/Re indl 02/17/2020 10:30:00 AM EDT [facility] Immunizations Vaccine Date Status Description Data Source(s) COVID-19 VACCINE Klarissa 08/24/2020 12:00:00 AM EDT completed [facility] Vaccine Series Complete: YESThis Data wa s Submitted to [facility] Via [facility]. Medications Medication Brand Name Start Date Product Form Dose Route Admi nistrative Instructions Pharmacy Instructions Status Indications Reaction Description Data Source(s) 2 % 03/23/2021 12:00:00 AM EST cream 60 APPLY TO AFFECTED AREA(S) TWO TIMES A DAY TO ARMS APPLY TO AFFECTED AREA(S) TWO TIMES A DAY TO ARMS SOLD : 03/23/2021 [facility] 200 mg 03/22/2021 12:00:00 AM EST tablet 14 TAKE ONE TABLET BY MOUTH EVERY DAY TAKE ONE TABLET BY MOUTH EVERY DAY SOLD: 03/22/2021 [facility] 5-325 mg 02/03/2020 12:00:00 AM EDT tablet 30 TAKE ONE TO TWO TABLETS BY MOUTH EVERY 4 HOURS NEEDED FOR PAIN MAXIMUM DAILY DOSE = 12 TAKE ONE TO TWO TABLETS BY MOUTH EVERY 4 HOURS NEEDED FOR PAIN MAXIMUM DAILY DOSE = 12 SOLD: 02/03/2020 [facility] Insurance Providers Payer name Policy type / Coverage type Policy ID Covered democrat ID Covered democrat's relationship to marion Policy [place] Plan Information [employer]AN [facility] [id number] SP [id number] [facility] MEDICAID [id number] S [id number] O UNAVAILABLE UNAVAILA BLE [facility] UNAVAILABLE S UNAVAILABLE SELF PAY ONLY - [id number] SP ANSI-Not a Secondary Insurance [id number] MEDICAID [id number] SP [id number] PEND[employer] INSURANCE [id number] SP [id number] ANSI-Not a Secondary Insurance [id number] ANSI-Not a Secondary Insurance [id number] ANSI-Not a Secondary Insurance [id number] SELF PAY ONLY [id number] SP [id number] SELF PAY ONLY [id number] SP [id number] Problems, Conditions, and Diagnoses Code Display Name Description Problem Type Effective Dates Data Source(s) S82.231D Displaced oblique fracture o f shaft of right tibia, subsequent encounter for closed fracture with routine healing DISPL OBLIQUE FX SHAFT OF R TIBIA, 7THD Diagnosis 04/14/2020 12:58:00 PM EST [facility] Z47.89 Encounter for other orthopedic aftercare ENCOUNTER FOR OTHER ORTHOPEDIC AFTERCARE Diagnosis 03/17/2020 12:52:00 PM EST [facility] S82.231S Displaced oblique fracture of shaft of r ight tibia, sequela DISPLACED OBLIQUE FRACTURE OF SHAFT OF RIGHT TIBIA Diagnosis 02/21/2020 09:48:00 AM [facility] Surgeries/Procedures Procedure Description Date Indications Data Source(s) OFFICE OUTPATIENT VISIT 15 MINUTES 03/04/2021 12:00:00 AM EDT [facility] OFF[facility] OUTPATIENT VISIT 25 MINUTES 03/04/2021 12:00:00 AM EDT [facility] ([facility] ) X-Ray Tibia & Fibula Ap & Lateral 04/28/2020 12:00:00 AM EST [facility] ([facility]) RADIOLOGIC EXAMINATION TIBIA & FIBULA 2 VIEWS 04/28/20 12:00:00 AM EST [facility] ([facility]) X-Ray Tibia & Fibula Ap & Lateral 03/16/2020 12:00:00 AM EST [facility] ([facility]) RADIOLOGIC EXAMINATION TIBIA & FIBULA 2 VIEWS 03/16/20 12:00:00 AM EST [facility] ([facility]) RADIOLOGIC EXAMINATION TIBIA & FIBULA 2 VIEWS 03/16/20 12:00:00 AM EST [facility] ([facility]) Inject/Drain Arthrocentesis Major Joint/Bursa/Ganglion Cyst 02/17/2020 12:00:00 AM EDT [facility] X-Ray Tibia & Fibula Ap & Lateral 02/17/2020 12:00:00 AM EDT [facility] RADIOLOGIC EXAMINATION TIBIA & FIBULA 2 VIEWS 02/17/20 12:00:00 AM EDT [facility] Results No Information Social History No Information Vital Signs ID Date Data Source UNK Name Value Range Interpretation Code Description Data Source(s) Body temperature 97.0 [degF] 97.0 [degF] [facility] Systolic blood pressure 168 mm[Hg] 168 mm[Hg] [facility] Heart rate 84 /min 84 /min [facility] ([facility]) Oxygen saturation in Arterial blood by Pulse oximetry 97 % 97 % [facility] ([facility]) Body temperature 97.9 [degF] 97.9 [degF] [facility] ([facility]) Body height 63.5 [in_i] 63.5 [in_i] [facility] ([facility]) 5'3.50" Body weight 124.00 [lb_av] 124.00 [lb_av] [facility] ([facility]) Body mass index (BMI) [Ratio] 21.6 kg/m2 21.6 k g/m2 [facility] ([facility]) [place] body weight 115 [lb_av] 115 [lb_av] [facility] ([facility]) Body weight 56.246 kg 56.246 kg [facility] ([facility]) Body surface area Derived from formula 1.59 m2 1.59 m2 [facility] Oxygen saturation in Arterial blood by Pulse oximetry 97 % 97 % [facility] ([facility]) Body temperature 97.9 [degF] 97.9 [degF] [facility] ([facility]) Body height 63.5 [in_i] 63.5 [in_i] [facility] ([facility]) 5'3.50" Body weight 124.00 [lb_av] 124.00 [lb_av] [facility] ([facility]) Body mass index (BMI) [Ratio] 21.6 kg/m2 21.6 k g/m2 [facility] ([facility]) [place] body weight 115 [lb_av] 115 [lb_av] [facility] ([facility]) Body weight 56.246 kg 56.246 kg [facility] Body surface area Derived from formula 1.59 m2 1.59 m2 [facility] Body temperature 98.5 [degF] 98.5 [degF] [facility] ([facility]) Body temperature 97.6 [degF] 97.6 [degF] [facility] ([facility]) Body height 63.5 [in_i] 63.5 [in_i] [facility] ([facility]) 5'3.50" [place] body weight 115 [lb_av] 115 [lb_av] [facility] ([facility]) Body temperature 97.5 [degF] 97.5 [degF] [facility] ([facility]) Body height 63.5 [in_i] 63.5 [in_i] [facility] ([facility]) 5'3.50" Body weight 124.00 [lb_av] 124.00 [lb_av] [facility] ([facility]) Body mass index (BMI) [Ratio] 21.6 kg/m2 21.6 k g/m2 [facility] ([facility]) [place] body weight 115 [lb_av] 115 [lb_av] [facility] ([facility]) Body weight 56.246 kg 56.246 kg [facility] ([facility]) Body surface area Derived from formula 1.59 m2 1.59 m2 [facility] ([facility]) Body mass index (BMI) [Ratio] 21.4 kg/m2 21.4 k g/m2 [facility] ([facility]) [place] body weight 115 [lb_av] 115 [lb_av] [facility] ([facility]) Body weight 55.793 kg 55.793 kg [facility] ([facility]) Body surface area Derived from formula 1.58 m2 1.58 m2 [facility] ([facility]) Body temperature 97.2 [degF] 97.2 [degF] [facility] ([facility]) Body height 63.5 [in_i] 63.5 [in_i] [facility] ([facility]) 5'3.50" Body weight 123.00 [lb_av] 123.00 [lb_av] [facility] ([facility])
--- OUTSIDE RECORDS SUMMARY | 2021-03-28 10:27 | CCD | Continuity of Care Document ---
Author Author Shanta OLIVEIRA MD Organization Unknown Address [address] [place] [address] , [facility] [address] [place] [address] Phone [phone] Care Team Providers Care User Interface Engineer Name Role Phone AUTM Unavailable Problems Description [...] lb BMI (Body Mass Index) 21.6 kg/m2 [place] Body Weight 115 lb Weight 56.246 kg BSA (Body Surface Area) 1.59 m2 Results Description No Information Available Procedures Date Code Description Status 03/04/2021 13872 Office/Outpatient Established Lo w MDM 20-29 Min Completed Medical Devices Description No Information Available Encounters Type Date Location Provider Dx Diagnosis Office Visit 03/04/2021 8:30a [facility] Antonio Oliveira MD S82.231G Displ oblique fx shaft of r tibia, 7thG Assessments Date Code Description Provider 03/04/2021 S82.231G Displaced oblique fr acture of shaft of right tibia, subsequent encounter for closed fracture with delayed healing Atnonio Oliveira MD Plan of Treatment No Information Available Functional Status Description No Information Available Mental Status Description No Information Available Referrals Description No Information Available
[2021-03-28 10:55] LABS: BASO # 0.1 10^3/uL (0.0-0.2); BASO % 0.6 % (0.0-1.0); EOS # 0.3 10^3/uL (0.0-0.5); EOS % 2.9 % (0.0-3.0); HEMATOCRIT 49.8 % (36.0-47.0); HEMOGLOBIN 16.4 g/dl (12.0-15.5); LYMPH # 2.8 10^3/uL (1.5-5.0); LYMPH % 23.9 % (24.0-44.0); MEAN CORPUSCULAR HEMOGLOBIN 29.6 pg (27.0-33.0); MEAN CORPUSCULAR HGB CONC 32.9 g/dl (32.0-36.5); MEAN CORPUSCULAR VOLUME 89.9 fl (80.0-96.0); MONO # 1.1 10^3/uL (0.0-0.8); MONO % 9.3 % (2.0-8.0); NEUTROPHILS # 7.3 10^3/uL (1.5-8.5); PLATELET COUNT, AUTOMATED 312 10^3/uL (150-450); RED BLOOD COUNT 5.54 10^6/uL (4.00-5.40); WHITE BLOOD COUNT 11.6 10^3/uL (4.0-10.0)
[2021-03-28 11:16] LABS: BLOOD UREA NITROGEN 10 MG/DL (7-18); C REACTIVE PROTEIN QUANTITATIV 1.31 MG/DL (0.00-0.30); CALCIUM LEVEL 9.8 MG/DL (8.8-10.2); CARBON DIOXIDE LEVEL 25 MEQ/L (21-32); CHLORIDE LEVEL 100 MEQ/L (98-107); CREATININE FOR GFR 0.65 MG/DL (0.55-1.30); GLOMERULAR FILTRATION RATE > 60.0 (>45); GLUCOSE, FASTING 132 MG/DL (70-100); POTASSIUM SERUM 4.3 MEQ/L (3.5-5.1); SODIUM LEVEL 134 MEQ/L (136-145)
[2021-03-28 11:21] LABS: ERYTHROCYTE SEDIMENTATION RATE 10 mm/hr (0-30)
--- NOTE | 2021-03-28 12:31 | REP ---
INDICATION: redness, swelling. COMPARISON: None. TECHNIQUE: Venous Doppler ultrasound evaluation of the right upper extremity was performed. FINDINGS: There is no evidence of venous thrombosis of the right upper extremity. IMPRESSION: No evidence of deep venous thrombosis of the right upper extremity. <Electronically signed by Mati Sandoval > 03/28/21 [id number]
[2021-03-28] MEDS ORDERED: VANCOMYCIN HCL 1,000 MG, VIAL MATE ADAPTER 1 EACH in NS 250 ML IV ONE (13:00)
[2021-03-28] MEDS ORDERED: DOXY-443 PO (14:16)
[2021-03-28] MEDS ORDERED: HYDR-3363 PO (14:16)
[2021-03-28 14:24] VITALS: BP 135/100
[2021-03-30 13:10] LABS: ANTINUCLEAR ANTIBODIES DIRECT Negative (Negative)
== END 2021-03-28 14:28 | disposition home or self-care (01) ==
LOC: M ED 10:09
DX: L03.113 Cellulitis of right upper limb (principal); L30.9 Dermatitis, unspecified; Z79.899 Other long term (current) drug therapy; Z79.82 Long term (current) use of aspirin; F17.210 Nicotine dependence, cigarettes, uncomplicated
CPT/HCPCS: 80048; 85025; 85652; 86038; 86140; 87040; 93971; 96365; 99284; J3370

== ENCOUNTER 2021-03-29 10:59 | Emergency (ER) | payer OTHER ==
[~2021-03-29] VITALS: Ht 162.6 cm; Wt 54.9 kg
[~2021-03-29 10:59] MED LIST changes: +DIFL200T PO; +DOXY-443 PO; +HYDR-3363 PO
[2021-03-29 11:00] VITALS: BP 158/75
--- OUTSIDE RECORDS SUMMARY | 2021-03-29 11:09 | CCD ---
Author Author [facility] Organization [facility] Address Unknown Phone Unavailable Care Team Providers Care Finished Stock Inspector Name Role Phone Yarely Dial MD Unavailable [...] Yarely Alvarez MD Unavailable Unavailable Mollison, Yarely Alvaerz MD Unavailable Unavailable Re-disclosure Warning The records [...] is protected by Article 27-F of the [facility] Public Health law. If you continue you may have access to information: Regarding HIV / AIDS; Provided by facilities licensed or operated by the [facility] Office of Mental Health; or Provided by the [facility] Office for People With Developmental Disabilities. If such information is present, then the following [facility] mandated warning applies: This information has been [...] law may result in a fine or residential sentence or both. A general authorization for the release of medical or other information is NOT sufficient authorization for further disc losure. Encounters Encounter Providers Location Date Indications Data Source(s ) Outpatient Attender: Antonio Zhang/Merle/Ayad/Re indl 03/04/2021 08:30:00 AM EDT [facility] ([facility] Outpatient Attender: Antonio Zhang/Merle/Ayad/Re indl 08/10/2020 09:00:00 AM EDT [facility] ([facility]) Outpatient Attender: Antonio Church/Ayad/Re indl 06/29/2020 08:30:00 AM EST [facility] ([facility]) Outpatient Attender: Antonio Church/Ayad/Re indl 06/01/2020 08:15:00 AM EST [facility] ([facility]) Outpatient Attender: Antonio Zhang/Merle/Ayad/Re indl 05/22/2020 07:30:00 AM EST [facility] ([facility]) Outpatient Attender: Antonio Dial MD 05/15/2020 01:55:00 PM [facility] Office Visit Attender: Antonio Zhang/Merle/Ayad/Re indl 04/28/2020 09:10:00 AM EST [facility] ([facility], ) Outpatient Attender: Antonio Dial MD 05/2019 08:26:00 AM EST - 05/14/2020 01:55:00 PM [facility] Patient discharged. Office Visit Attender: Antonio Noguera/Re indl 03/16/2020 09:10:00 AM EST [facility] ([facility], ) Outpatient Attender: Antonio Dial MD 05/2019 03:16:00 PM EST - 04/08/2020 08:25:00 AM [facility] Patient discharged. Outpatient Attender: Antonio Dial MD 01/2020 08:50:00 AM EDT - 03/12/2020 03:16:00 PM [facility] Patient discharged. Outpatient Attender: Antonio Zhang/Jovany/Re indl 02/17/2020 10:30:00 AM EDT [facility] ([facility], ) Immunizations Vaccine Date Status Description Data Source(s) COVID-19 VACCINE [facility] 08/24/2020 12:00:00 AM EDT completed NYSIIS Vaccine Series Complete: YESThis Data wa s Submitted to [facility] Via [employer]. Medications Medication Brand Name Start Date Product [...] TABLET BY MOUTH EVERY DAY SOLD: 03/22/2021 [facility] 5-325 mg 02/03/2020 12:00:00 AM EDT tablet 30 TAKE ONE TO TWO TABLETS BY MOUTH EVERY 4 HOURS NEEDED FOR PAIN MAXIMUM DAILY DOSE = 12 TAKE ONE TO TWO TABLETS BY MOUTH EVERY 4 HOURS NEEDED FOR PAIN MAXIMUM DAILY DOSE = 12 SOLD: 02/03/2020 [facility] Insurance Providers Payer name Policy type / Coverage type Policy ID Covered constitution party ID Covered constitution party's relationship to marion Policy [place] Plan Information [employer] [facility] [id number] SP [id number] [facility] MEDICAID [id number] S [id number] O UNAVAILABLE UNAVAILA BLE [facility] UNAVAILABLE S UNAVAILABLE SELF PAY ONLY - SP1 SP ANSI-Not a Secondary Insurance [id number] MEDICAID [id number] SP [id number] [employer]END[employer] [id number] SP [id number] ANSI-Not a Secondary Insurance [id number] ANSI-Not a Secondary Insurance [id number] ANSI-Not a Secondary Insurance [id number] SELF PAY ONLY [id number] SP [id number] SELF PAY ONLY [id number] SP [id number] Problems, Conditions, and Diagnoses Code Display [...] OF RIGHT TIBIA Diagnosis 02/21/2020 09:48:00 AM [facility] Surgeries/Procedures Procedure Description Date Indications Data Source(s) OFFICE OUTPATIENT VISIT 15 MINUTES 03/04/2021 12:00:00 AM [facility] OFFICE OUTPATIENT VISIT 25 MINUTES 03/04/2021 12:00:00 AM EDT [facility] ([facility], ) X-Ray Tibia & Fibula Ap & Lateral 04/28/2020 12:00:00 AM EST [facility] ([facility], ) RADIOLOGIC EXAMINATION TIBIA & FIBULA 2 VIEWS 04/28/20 12:00:00 AM EST [facility] ([facility]) X-Ray Tibia & Fibula Ap & Lateral 03/16/2020 12:00:00 AM EST [facility] ([facility]) RADIOLOGIC EXAMINATION TIBIA & FIBULA 2 VIEWS 03/16/20 12:00:00 AM EST [facility] ([facility]) RADIOLOGIC EXAMINATION TIBIA & FIBULA 2 VIEWS 03/16/20 12:00:00 AM EST [facility] ([facility]) Inject/Drain Arthrocentesis Major Joint/Bursa/Ganglion Cyst 02/17/2020 12:00:00 AM EDT [facility] ([facility], ) X-Ray Tibia & Fibula Ap & Lateral 02/17/2020 12:00:00 AM EDT [facility]) RADIOLOGIC EXAMINATION TIBIA & FIBULA 2 VIEWS 02/17/20 12:00:00 AM EDT [facility]) Results No Information Social History No Information Vital Signs ID Date Data Source UNK Name Value Range Interpretation Code Description Data Source(s) Body temperature 97.0 [degF] 97.0 [degF] [facility] ([facility], ) Systolic blood pressure 168 mm[Hg] 168 mm[Hg] [facility] Heart rate 84 /min 84 /min [facility] ([facility], ) Oxygen saturation in Arterial blood by Pulse oximetry 97 % 97 % [facility] ([facility]) Body temperature 97.9 [degF] 97.9 [degF] [facility] ([facility]) Body height 63.5 [in_i] 63.5 [in_i] [facility] ([facility]) 5'3.50" Body weight 124.00 [lb_av] 124.00 [lb_av] [facility] ([facility]) Body mass index (BMI) [Ratio] 21.6 kg/m2 21.6 k g/m2 [facility] ([facility]) [place] body weight 115 [lb_av] 115 [lb_av] [facility] ([facility]) Body weight 56.246 kg 56.246 kg [facility] ([facility]) Oxygen saturation in Arterial blood by Pulse oximetry 97 % 97 % [facility] ([facility]) Body temperature 97.9 [degF] 97.9 [degF] [facility] ([facility]) Body height 63.5 [in_i] 63.5 [in_i] [facility] ([facility]) 5'3.50" Body weight 124.00 [lb_av] 124.00 [lb_av] [facility] ([facility]) Body mass index (BMI) [Ratio] 21.6 kg/m2 21.6 k g/m2 [facility] ([facility]) [place] body weight 115 [lb_av] 115 [lb_av] [facility] ([facility]) Body weight 56.246 kg 56.246 kg [facility] ([facility]) Body surface area Derived from formula 1.59 m2 1.59 m2 [facility] ([facility]) Body surface area Derived from formula 1.59 m2 1.59 m2 [facility] ([facility]) Body temperature 98.5 [degF] 98.5 [degF] [facility] ([facility]) Body temperature 97.6 [degF] 97.6 [degF] [facility] ([facility]) Body height 63.5 [in_i] 63.5 [in_i] [facility] ([facility]) 5'3.50" [place] body weight 115 [lb_av] 115 [lb_av] [facility] ([facility]) Body temperature 97.5 [degF] 97.5 [degF] [facility] ([facility]) Body height 63.5 [in_i] 63.5 [in_i] [facility] ([facility]) 5'3.50" Body weight 124.00 [lb_av] 124.00 [lb_av] [facility] ([facility]) Body mass index (BMI) [Ratio] 21.6 kg/m2 21.6 k g/m2 [facility] ([facility]) [place] body weight 115 [lb_av] 115 [lb_av] [facility] ([facility]) Body weight 56.246 kg 56.246 kg [facility] ([facility]) Body surface area Derived from formula 1.59 m2 1.59 m2 [facility] ([facility]) Body mass index (BMI) [Ratio] 21.4 kg/m2 21.4 k g/m2 [facility] ([facility]) [place] body weight 115 [lb_av] 115 [lb_av] [facility] ([facility]) Body weight 55.793 kg 55.793 kg [facility] ([facility]) Body surface area Derived from formula 1.58 m2 1.58 m2 [facility] ([facility]) Body temperature 97.2 [degF] 97.2 [degF] [facility] ([facility]) Body height 63.5 [in_i] 63.5 [in_i] [facility] 5'3.50" Body weight 123.00 [lb_av] 123.00 [lb_av] [facility] ([facility])
--- OUTSIDE RECORDS SUMMARY | 2021-03-29 16:14 | CCD ---
Author Author [facility] Organization [facility] Address Unknown Phone Unavailable Care Team Providers Care Replenishment Buyer Name Role Phone Yarely Dial MD Unavailable [...] Yarely Alvarez MD Unavailable Unavailable Mollison, Yarely Alvarze MD Unavailable Unavailable Mollison, Yarely Alvarez MD [...] is protected by Article 27-F of the [facility] Public Health law. If you continue you may have access to information: Regarding HIV / AIDS; Provided by facilities licensed or operated by the [facility] Office of Mental Health; or Provided by the [facility] Office for People With Developmental Disabilities. If such information is present, then the following [facility] mandated warning applies: This information has been [...] law may result in a fine or long-term sentence or both. A general authorization for the release of medical or other information is NOT sufficient authorization for further disc losure. Encounters Encounter Providers Location Date Indications Data Source(s ) Outpatient Attender: Antonio Zhang/Merle/Ayad/Re indl 03/04/2021 08:30:00 AM EDT [facility] ([facility] Outpatient Attender: Antonio Zhang/Merle/Ayad/Re indl 08/10/2020 09:00:00 AM EDT [facility] ([facility]) Outpatient Attender: Antonio Church/Ayad/Re indl 06/29/2020 08:30:00 AM EST [facility] ([facility] Outpatient Attender: Antonio Church/Ayad/Re indl 06/01/2020 08:15:00 AM EST [facility] ([facility] Outpatient Attender: Antonio Zhang/Merle/Ayad/Re indl 05/22/2020 07:30:00 AM EST [facility] ([facility] Outpatient Attender: Antonio Dial MD 05/15/2020 01:55:00 PM [facility] Office Visit Attender: Antonio Zhang/Merle/Ayad/Re indl 04/28/2020 09:10:00 AM EST [facility] ([facility], ) Outpatient Attender: Antonio Dial MD 05/2019 08:26:00 AM EST - 05/14/2020 01:55:00 PM [facility] Patient discharged. Office Visit Attender: Antonio Noguera/Re indl 03/16/2020 09:10:00 AM EST [facility] ([facility], ) Outpatient Attender: Antonio Dial MD 05/2019 03:16:00 PM EST - 04/08/2020 08:25:00 AM [facility] Patient discharged. Outpatient Attender: Antonio Dial MD 01/2020 08:50:00 AM EDT - 03/12/2020 03:16:00 PM [facility] Patient discharged. Outpatient Attender: Antonio Zhang/Jovany/Re indl 02/17/2020 10:30:00 AM EDT [facility] ([facility], ) Immunizations Vaccine Date Status Description Data Source(s) COVID-19 VACCINE [facility] 08/24/2020 12:00:00 AM EDT completed NYSIIS Vaccine Series Complete: YESThis Data wa s Submitted to [facility] Via [employer]. Medications Medication Brand Name Start Date Product [...] type / Coverage type Policy ID Covered republican ID Covered republican's relationship to marion Policy [place] Plan Information UN COMMUN[employer]AN [facility] [id number] SP [id number] [facility] MEDICAID [id number] S [id number] O UNAVAILABLE UNAVAILA BLE [facility] UNAVAILABLE S UNAVAILABLE SELF PAY ONLY - SP1 SP ANSI-Not a Secondary Insurance [id number] MEDICAID [id number] SP [id number] PENDING [employer] INSURANCE [id number] SP [id number] ANSI-Not a Secondary Insurance [id number] ANSI-Not a Secondary Insurance [id number] ANSI-Not a Secondary Insurance [id number] SELF PAY ONLY [id number] SP [id number] SELF PAY ONLY [id number] SP [id number] Problems, Conditions, and Diagnoses Code Display [...] TIBIA Diagnosis 02/21/2020 09:48:00 AM [facility] Surgeries/Procedures Procedure Description Date Indications Data Source(s) OFFICE OUTPATIENT VISIT 15 MINUTES 03/04/2021 12:00:00 AM [facility] OFFICE OUTPATIENT VISIT 25 MINUTES 03/04/2021 12:00:00 AM EDT [facility] ([facility], ) X-Ray Tibia & Fibula Ap & Lateral 04/28/2020 12:00:00 AM EST [facility] ([facility], ) RADIOLOGIC EXAMINATION TIBIA & FIBULA 2 VIEWS 04/28/20 12:00:00 AM EST [facility] ([facility]) X-Ray Tibia & Fibula Ap & Lateral 03/16/2020 12:00:00 AM EST [facility] ([facility]) RADIOLOGIC EXAMINATION TIBIA & FIBULA 2 VIEWS 03/16/20 12:00:00 AM EST [facility] ([facility]) RADIOLOGIC EXAMINATION TIBIA & FIBULA 2 VIEWS 03/16/20 12:00:00 AM EST [facility] ([facility]) Inject/Drain Arthrocentesis Major Joint/Bursa/Ganglion Cyst 02/17/2020 12:00:00 AM EDT [facility] X-Ray Tibia & Fibula Ap & Lateral 02/17/2020 12:00:00 AM ED[facility] RADIOLOGIC EXAMINATION TIBIA & FIBULA 2 VIEWS 02/17/20 12:00:00 AM EDT [facility] Results No Information Social History No Information Vital Signs ID Date Data Source UNK Name Value Range Interpretation Code Description Data Source(s) Body temperature 97.0 [degF] 97.0 [degF] [facility] ([facility], ) Systolic blood pressure 168 mm[Hg] 168 mm[Hg] [facility] Heart rate 84 /min 84 /min [facility] ([facility], ) Oxygen saturation in Arterial blood by Pulse oximetry 97 % 97 % [facility] ([facility]) Body temperature 97.9 [degF] 97.9 [degF] [facility] ([facility]) Body height 63.5 [in_i] 63.5 [in_i] [facility] ([facility]) 5'3.50" Body weight 124.00 [lb_av] 124.00 [lb_av] [facility] ([facility]) Body mass index (BMI) [Ratio] 21.6 kg/m2 21.6 k g/m2 [facility] ([facility]) [place] body weight 115 [lb_av] 115 [lb_av] [facility] ([facility]) Body weight 56.246 kg 56.246 kg [facility] ([facility] Oxygen saturation in Arterial blood by Pulse oximetry 97 % 97 % [facility] ([facility]) Body temperature 97.9 [degF] 97.9 [degF] [facility] ([facility]) Body height 63.5 [in_i] 63.5 [in_i] [facility] ([facility]) 5'3.50" Body weight 124.00 [lb_av] 124.00 [lb_av] [facility] ([facility]) Body mass index (BMI) [Ratio] 21.6 kg/m2 21.6 k g/m2 [facility] [place] body weight 115 [lb_av] 115 [lb_av] [facility] ([facility]) Body weight 56.246 kg 56.246 kg [facility] ([facility]) Body surface area Derived from formula 1.59 m2 1.59 m2 [facility] ([facility]) Body surface area Derived from formula 1.59 m2 1.59 m2 [facility] ([facility]) Body temperature 98.5 [degF] 98.5 [degF] [facility] ([facility]) Body temperature 97.6 [degF] 97.6 [degF] [facility] ([facility]) Body height 63.5 [in_i] 63.5 [in_i] [facility] ([facility]) 5'3.50" [place] body weight 115 [lb_av] 115 [lb_av] [facility] ([facility]) Body temperature 97.5 [degF] 97.5 [degF] [facility] ([facility]) Body height 63.5 [in_i] 63.5 [in_i] [facility] ([facility]) 5'3.50" Body weight 124.00 [lb_av] 124.00 [lb_av] [facility] ([facility]) Body mass index (BMI) [Ratio] 21.6 kg/m2 21.6 k g/m2 [facility] ([facility]) [place] body weight 115 [lb_av] 115 [lb_av] [facility] ([facility]) Body weight 56.246 kg 56.246 kg [facility] ([facility]) Body surface area Derived from formula 1.59 m2 1.59 m2 [facility] ([facility]) Body mass index (BMI) [Ratio] 21.4 kg/m2 21.4 k g/m2 [facility] ([facility]) [place] body weight 115 [lb_av] 115 [lb_av] [facility] ([facility]) Body weight 55.793 kg 55.793 kg [facility] ([facility]) Body surface area Derived from formula 1.58 m2 1.58 m2 [facility] ([facility]) Body temperature 97.2 [degF] 97.2 [degF] [facility] ([facility]) Body height 63.5 [in_i] 63.5 [in_i] [facility] 5'3.50" Body weight 123.00 [lb_av] 123.00 [lb_av] [facility] ([facility])
== END 2021-03-29 13:17 | disposition left against medical advice (07) ==
LOC: M ED 10:59
DX: Z53.29 Procedure and treatment not carried out because of patient's decision for other reasons (principal)

== ENCOUNTER → 2021-04-02 | Outpatient (CLI) | payer OTHER ==
[2021-04-02 17:26] LABS: ALBUMIN 3.7 GM/DL (3.2-5.2); ALT/SGPT 31 U/L (12-78); BILIRUBIN,DIRECT < 0.1 MG/DL (0.0-0.2); BILIRUBIN,TOTAL 0.2 MG/DL (0.2-1.0); TOTAL PROTEIN 7.8 GM/DL (6.4-8.2)
== END ==
LOC: M PLALAB 14:48
PROVIDERS: ATTEND Nurse Practitioner Family
DX: R21 Rash and other nonspecific skin eruption (principal)

== ENCOUNTER → 2021-04-20 | Outpatient (CLI) | payer OTHER ==
[2021-04-20 17:23] LABS: BASO # 0.1 10^3/uL (0.0-0.2); BASO % 0.5 % (0.0-1.0); EOS # 0.5 10^3/uL (0.0-0.5); EOS % 4.7 % (0.0-3.0); HEMOGLOBIN 14.7 g/dl (12.0-15.5); LYMPH # 2.6 10^3/uL (1.5-5.0); LYMPH % 23.4 % (24.0-44.0); MEAN CORPUSCULAR HEMOGLOBIN 30.1 pg (27.0-33.0); MEAN CORPUSCULAR HGB CONC 33.4 g/dl (32.0-36.5); MONO # 0.9 10^3/uL (0.0-0.8); MONO % 7.7 % (2.0-8.0); NEUTROPHILS # 7.1 10^3/uL (1.5-8.5); NEUTROPHILS % 63.4 % (36.0-66.0); PLATELET COUNT, AUTOMATED 294 10^3/uL (150-450); RED BLOOD COUNT 4.89 10^6/uL (4.00-5.40); WHITE BLOOD COUNT 11.3 10^3/uL (4.0-10.0)
[2021-04-20 17:52] LABS: FERRITIN 212 NG/ML (8-252); IRON (FE) 122 UG/DL (50-170); PERCENT SATURATION 37.3 % (13.2-45.0); TOTAL IRON BINDING CAPACITY 327 UG/DL (250-450); URIC ACID 4.6 MG/DL (2.6-6.0)
[2021-04-20 18:12] LABS: HEPATITIS B SURFACE ANTIGEN NEGATIVE (NEGATIVE)
[2021-04-20 18:41] LABS: HEPATITIS C VIRUS ABY INDEX 0.1 INDEX (<0.8)
== END ==
LOC: M PLALAB 15:35
PROVIDERS: ATTEND Nurse Practitioner Family
DX: B35.4 Tinea corporis (principal)

== ENCOUNTER → 2021-04-20 | Outpatient (REF) | payer OTHER ==
[~2021-04-20] MED LIST changes: -FLUC200T2 PO; +FLUC200T4 PO
== END ==
LOC: M SFHCPLAZ 17:32
PROVIDERS: ATTEND Family Medicine
DX: L30.8 Other specified dermatitis (principal)